=== PATIENT | female | born 1945 | race Caucasian/White ===

== ENCOUNTER 2021-04-08 01:27 | Emergency (ER) | payer OTHER ==
[2021-04-08 02:12] LABS: Protime INR 1.01
[2021-04-08] MEDS ORDERED: ATROPINE SULF 1 MG/10 ML SYR IV ONE (02:19)
[2021-04-08] MEDS ORDERED: NA CHLORIDE 0.9% 500 ML ONE ×2 (02:20→02:51)
[2021-04-08 02:21] LABS: Absolute Lymphocytes (CBC) 1.8 K/uL (0.7-4.9); Basophils % 0.8 % (0-1.3); Hematocrit 41.5 % (36.0-45.0); Lymphocytes % 27.7 % (15.3-44.8); MPV 8.1 fL (7.6-11.3); RBC Red Blood Cell Count 4.37 M/uL (3.86-4.86)
[2021-04-08] MEDS ORDERED: ONDANSETRON 4 MG/2 ML VIAL ONE (02:26)
[2021-04-08] MEDS ORDERED: MORPHINE 2 MG/ML SYR ONE (02:26)
[2021-04-08 02:30] LABS: BUN Blood Urea Nitrogen 20 mg/dL (7-18); Bicarbonate 29 mmol/L (21-32); Glucose Level 98 mg/dL (74-106); Magnesium 2.6 mg/dL (1.8-2.4); NT PRO-BNP 153 pg/mL (<450); Potassium 3.6 mmol/L (3.5-5.1); Sodium Level 141 mmol/L (136-145); Troponin (Emerg Dept Use Only) < 0.02 ng/mL (0.0-0.045)
--- NOTE | 2021-04-08 03:17 | EDPHYS ---
Physician Documentation [facility] Name: Tata Lainez Age: 76 yrs Sex: Female : 1945 Arrival Date: 04/08/2021 Time: 01:33 Bed 14 Private MD: ED Physician Lenny Kline HPI: 04/08 01:52 This 76 yrs old Female presents to ER via Unassigned with complaints of rn Syncope. 01:52 The patient has experienced syncope. Onset: The symptoms/episode began/occurred just rn prior to arrival. Duration: The patient has had multiple episodes. Associated injury: The patient did not suffer any apparent associated injury. Associated signs and symptoms: Pertinent positives: dizziness, lightheadedness, Pertinent negatives: abdominal pain, chest pain, seizure, shortness of breath. Current symptoms: Lightheaded. The patient has not experienced similar symptoms in the past. Patient reports that began 2 hours ago feeling lightheaded and dizzy. Denies any chest pain. No history of cardiac arrhythmia. Noticed heart pounding but denies any palpitations. Currently feels lightheaded. No recent medication changes. Sister gave a dose of nitroglycerin sublingual when became symptomatic.. Historical: - Allergies: 02:04 No Known Allergies; em - PMHx: 02:04 CAD; High Cholesterol; constipation; Hypertension; em - Immunization history:: Adult Immunizations up to date. - Social history:: Smoking status: Patient denies any tobacco usage or history of. - Family history:: not pertinent. - Hospitalizations: : No recent hospitalization is reported. - History obtained from: sister. ROS: 01:52 Constitutional: Negative for fever, chills, and weight loss, Eyes: Negative for injury, rn pain, redness, and discharge, Neck: Negative for injury, pain, and swelling, Cardiovascular: Negative for chest pain, palpitations, and edema, Respiratory: Negative for shortness of breath, cough, wheezing, and pleuritic chest pain, Abdomen/GI: Negative for abdominal pain, nausea, vomiting, diarrhea, and constipation, Back: Negative for injury and pain, MS/Extremity: Negative for injury and deformity, Skin: Negative for injury, rash, and discoloration, Neuro: Negative for headache, numbness, tingling, and seizure. 01:52 All other systems are negative. Exam: 01:52 Constitutional: This is a well developed, well nourished patient who is awake, alert, rn and in no acute distress. Head/Face: Normocephalic, atraumatic. Eyes: Periorbital areas with no swelling, redness, or edema. Cardiovascular: Bradycardic, regular. No pulse deficits Respiratory: No increased work of breathing, no retractions or nasal flaring. Abdomen/GI: Soft, non-tender, no masses Skin: Warm, dry, no cyanosis MS/ Extremity: Pulses equal, no cyanosis. Neurovascular intact. Full, normal range of motion. Equal circumference. Neuro: Awake and alert, GCS 15, oriented to person, place, time, and situation. Vital Signs: 01:40 BP 156 / 85; Pulse 33; Resp 18; Pulse Ox 99% on R/A; Weight 50.8 kg; Height 5 ft. 5 in. em (165.10 cm); Pain 0/10; 01:50 BP 165 / 68; Pulse 40; Resp 18; Pulse Ox 97% on R/A; Pain 0/10; wg 02:00 BP 146 / 55; Pulse 40; Resp 18; Pulse Ox 98% on 4 lpm NC; Pain 0/10; wg 02:15 BP 165 / 68; Pulse 34; Resp 18; Pulse Ox 98% on 4 lpm NC; Pain 0/10; wg 02:30 BP 158 / 68; Pulse 34; Resp 18; Pulse Ox 98% 4 lpm ; Pain 0/10; wg 02:32 Temp 97.9(O); sj1 02:46 BP 146 / 60; Pulse 34; Resp 18; Pulse Ox 100% on 4 lpm NC; Pain 0/10; wg 03:00 BP 144 / 61; Pulse 33; Resp 18; Pulse Ox 100% on 4 lpm NC; Pain 0/10; wg 03:15 BP 146 / 58; Pulse 33; Resp 18; Pulse Ox 100% on 4 lpm NC; Pain 0/10; wg 03:46 BP 123 / 56; Pulse 34; Resp 18; Pulse Ox 100% on NC; Pain 0/10; wg 04:00 BP 118 / 57; Pulse 33; Resp 18; Pulse Ox 100% on 4 lpm NC; Pain 0/10; wg 04:15 BP 112 / 57; Pulse 32; Resp 18; Pulse Ox 100% on 4 lpm NC; Pain 0/10; wg 01:40 Body Mass Index 18.64 (50.80 kg, 165.10 cm) em [place] Coma Score: 01:50 Eye Response: spontaneous(4). Verbal Response: oriented(5). Motor Response: obeys wg commands(6). Total: 15. MDM: 01:34 Patient medically screened. rn 02:04 ED course: Patient with complete heart block on ECG. Atropine did not think. Giving rn morphine and and going to pace with external pacers. Initiated transfer to [facility] since unable to place pacemaker here at this facility.. 03:13 ED course: [facility] just notified us that there are no ICU beds available. Initiating learning coach to [facility]. Patient still otherwise grossly asymptomatic at this time. Denies any dizziness/lightheadedness/chest pain or shortness of breath. Did not tolerate pacing too well even with pain medication, have pacer off at this time with constant reevaluation.. 03:13 Differential Diagnosis: cardiac arrhythmia, idiopathic syncope, vasovagal episode, international project engineer block, complete heart block. Data reviewed: vital signs, nurses notes, lab test result(s), EKG, and as a result, I will admit patient. Data interpreted: monitoring tech: rate is 33 beats/min, rhythm is Complete heart block, with 3rd degree heart block, Interpretation: Third-degree heart block, Pulse oximetry: on room air is 100 %. Interpretation: normal. Counseling: I had a detailed discussion with the patient and/or guardian regarding: the historical points, exam findings, and any diagnostic results supporting the discharge/admit diagnosis, lab results, the need to transfer to another facility, for higher level of care, [facility] does not immediately have the required specialist. Response to treatment: the patient's symptoms have mildly improved after treatment, and as a result, I will admit patient. 03:31 ED course: Dr. Danielle at [facility] cardiology accepts patient without rn consultation.. 04:18 ED course: Spoke with EMS, they do not believe she needs to be paced fo program manager transportation despite my request and recommendation for pacing. They state she appears hemodynamically stable and will only pace if becomes unstable. . 04/08 01:51 Order name: Basic Metabolic Panel rn 04/08 01:51 Order name: CBC with Diff; Complete Time: 02:52 rn 04/08 01:51 Order name: Magnesium; Complete Time: 02:52 rn 04/08 01:51 Order name: NT PRO-BNP; Complete Time: 02:52 rn 04/08 01:51 Order name: PT-INR; Complete Time: 02:52 rn 04/08 01:51 Order name: Troponin (emerg Dept Use Only); Complete Time: 02:52 rn 04/08 01:51 Order name: XRAY Chest (1 view) rn 04/08 01:52 Order name: Basic Metabolic Panel; Complete Time: 02:52 EDMS 04/08 02:14 Order name: SARS-COV-2 RT PCR; Complete Time: 03:24 EDMS 04/08 01:51 Order name: EKG; Complete Time: 01:52 rn 04/08 01:51 Order name: Cardiac monitoring; Complete Time: 02:01 rn 04/08 01:51 Order name: EKG - Nurse/Tech; Complete Time: 02:01 rn 04/08 01:51 Order name: IV Saline Lock; Complete Time: 02:01 rn 04/08 01:51 Order name: Labs collected and sent; Complete Time: 02:01 rn 04/08 01:51 Order name: O2 Per Protocol; Complete Time: 02: 04/08 01:51 Order name: O2 Sat Monitoring; Complete Time: 02:01 rn Administered Medications: 01:56 Drug: Atropine 0.5 mg Route: IVP; Site: right antecubital; em 02:12 Follow up: Response: No adverse reaction; No change in condition em 01:56 Drug: NS 0.9% 500 ml Route: IV; Rate: bolus; Site: right antecubital; em 03:48 Follow up: IV Status: Completed infusion; IV Intake: 500ml wg 02:00 Drug: Zofran (Ondansetron) 4 mg Route: IVP; Infused Over: 2 mins; Site: right wg antecubital; 02:48 Follow up: Response: No adverse reaction 02:00 Drug: morphine 2 mg Route: IVP; Infused Over: 2 mins; Site: right antecubital; wg 02:48 Follow up: Response: No adverse reaction 02:06 Drug: morphine 2 mg Route: IVP; Infused Over: 2 mins; Site: right antecubital; wg 02:47 Follow up: Response: No adverse reaction wg 03:10 Drug: Ativan (LORazepam) 0.5 mg Route: IVP; Infused Over: 2 mins; Site: right wg antecubital; 03:47 Follow up: Response: No adverse reaction 03:30 Drug: Ativan (LORazepam) 0.5 mg Route: IVP; Infused Over: 2 mins; Site: right wg antecubital; 03:48 Follow up: Response: Anxiety decreased Disposition Summary: 04/08/21 03:16 Transfer Ordered Transfer Location: [facility] rn Reason: Higher level of care rn Condition: Fair rn Problem: new rn Symptoms: are unchanged rn Accepting Physician: Dr. 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 Total rn time: 80 minutes Signatures: Dispatcher [employer] Evaristo Gore RN Lenny Gilbert MD MD rn [place], Phu, NICHOLE arenas Corrections: (The following items were deleted from the chart) 02:14 02:11 CORONAVIRUS+MR.LAB.BRZ ordered. BRANDY NAVA 03:31 03:16 Dr. saldaña rn 04:27 03:31 Dr. Danielle rn wg
--- NOTE | 2021-04-08 03:17 | ER ---
Nurse's Notes [facility] Name: Tata Lainez Age: 76 yrs Sex: Female : 1945 Arrival Date: 04/08/2021 Time: 01:33 Bed 14 Private MD: Diagnosis: Other specified heart block-Third degree heart block;Syncope Near Presentation: 04/08 01:40 Chief complaint: Patient states: palpitations, felt like passing out 3 times, now feels em heart is beating fast, Dr. Kline at bedside. 01:40 Method Of Arrival: Wheelchair em 01:40 Coronavirus screen: Vaccine status: Patient reports receiving the 2nd dose of the covid em vaccine. Ebola Screen: Patient negative for fever greater than or equal to 101.5 degrees Fahrenheit, and additional compatible Ebola Virus Disease symptoms Patient denies exposure to infectious person. Patient denies travel to an Ebola-affected area in the 21 days before illness onset. No symptoms or risks identified at this time. Initial Sepsis Screen: Does the patient meet any 2 criteria? No. Patient's initial sepsis screen is negative. Does the patient have a suspected source of infection? No. Patient's initial sepsis screen is negative. Risk Assessment: Do you want to hurt yourself or someone else? Patient reports no desire to harm self or others. Onset of symptoms was April 08, 2021. 01:40 Acuity: LISA 1 em Triage Assessment: 01:40 General: Appears in no apparent distress. comfortable, Behavior is calm, cooperative. em Pain: Denies pain. Neuro: Level of Consciousness is awake, alert, obeys commands, Oriented to person, place, time, situation. Cardiovascular: Denies chest pain, Capillary refill < 3 seconds Patient's skin is warm and dry. Rhythm is sinus bradycardia. Respiratory: Airway is patent Respiratory effort is even, unlabored, Respiratory pattern is regular, symmetrical. Derm: Skin is intact, is healthy with good turgor, Skin is pink, warm \T\ dry. Musculoskeletal: Range of motion: intact in all extremities. Historical: - Allergies: 02:04 No Known Allergies; em - PMHx: 02:04 CAD; High Cholesterol; constipation; Hypertension; em - Immunization history:: Adult Immunizations up to date. - Social history:: Smoking status: Patient denies any tobacco usage or history of. - Family history:: not pertinent. - Hospitalizations: : No recent hospitalization is reported. - History obtained from: sister. Screenin:36 Abuse screen: Denies threats or abuse. Denies injuries from another. Nutritional wg screening: No deficits noted. Tuberculosis screening: No symptoms or risk factors identified. Fall Risk Assessment: 01:55 Reassessment:. Cardiovascular: Capillary refill < 3 seconds Patient's skin is warm and wg dry. Rhythm is 3rd Degree Block. Respiratory: No deficits noted. Airway is patent Trachea midline Respiratory effort is even, unlabored, Respiratory pattern is regular, Breath sounds are clear bilaterally. GI: No deficits noted. : No deficits noted. 02:34 Reassessment: Dr. Kline at bedside. Pt medicated for comfort prior to pacing. Pt wg visually uncomfortable during pacing. Pt perfusing well. Pacing stopped, pads left in place. HR in the 30's with BP's in the 150's. 02:43 Reassessment: No changes from previously documented assessment. Pt remains wilian in 3rd wg degree. Pacing pads in place but not on. Pt continues to deny SOB, CP and the feeling she may pass out. Pt's sister at bedside. Pt remains stable without pacing at this time. 02:58 Reassessment: Patient appears in no apparent distress at this time. No changes from wg previously documented assessment. Patient is alert, oriented x 3, equal unlabored respirations, skin warm/dry/pink. Pt remains comfortable with only mild dizziness on occasion. Pt does not feel like she is going to pass out. Pt denies SOB and any pain/discomfort anywhere. Pt perfusing well. Awaiting transfer. 03:05 Reassessment: Patient appears in no apparent distress at this time. No changes from wg previously documented assessment. Patient is alert, oriented x 3, equal unlabored respirations, skin warm/dry/pink. Pt verbalized anxiety about what she experience and how she is feeling. Pt remains well perfused in a 3rd degree block at a rate in the low 30's. 03:32 Reassessment: No changes from previously documented assessment. Patient is alert, wg oriented x 3, equal unlabored respirations, skin warm/dry/pink. Pt remains unchanged hemodynamically. Pt states she is still feeling anxious and the ativan did help. Pt's HR remains in the 30's. 04:23 Reassessment: No changes from previously documented assessment. Patient is alert, wg oriented x 3, equal unlabored respirations, skin warm/dry/pink. Pt reported good relief following the ativan. 04:23 Reassessment: Report given to [facility]. Pt placed on their Pacer pads due to wg compatibility. Pt remains unpaced and perfusing well. 04:26 Reassessment: Report called to NICHOLE Ellison at [place] [facility]. Vital Signs: 01:40 BP 156 / 85; Pulse 33; Resp 18; Pulse Ox 99% on R/A; Weight 50.8 kg; Height 5 ft. 5 in. em (165.10 cm); Pain 0/10; 01:50 BP 165 / 68; Pulse 40; Resp 18; Pulse Ox 97% on R/A; Pain 0/10; wg 02:00 BP 146 / 55; Pulse 40; Resp 18; Pulse Ox 98% on 4 lpm NC; Pain 0/10; wg 02:15 BP 165 / 68; Pulse 34; Resp 18; Pulse Ox 98% on 4 lpm NC; Pain 0/10; wg 02:30 BP 158 / 68; Pulse 34; Resp 18; Pulse Ox 98% 4 lpm ; Pain 0/10; wg 02:32 Temp 97.9(O); sj1 02:46 BP 146 / 60; Pulse 34; Resp 18; Pulse Ox 100% on 4 lpm NC; Pain 0/10; wg 03:00 BP 144 / 61; Pulse 33; Resp 18; Pulse Ox 100% on 4 lpm NC; Pain 0/10; wg 03:15 BP 146 / 58; Pulse 33; Resp 18; Pulse Ox 100% on 4 lpm NC; Pain 0/10; wg 03:46 BP 123 / 56; Pulse 34; Resp 18; Pulse Ox 100% on NC; Pain 0/10; wg 04:00 BP 118 / 57; Pulse 33; Resp 18; Pulse Ox 100% on 4 lpm NC; Pain 0/10; wg 04:15 BP 112 / 57; Pulse 32; Resp 18; Pulse Ox 100% on 4 lpm NC; Pain 0/10; wg 01:40 Body Mass Index 18.64 (50.80 kg, 165.10 cm) em Vitals: 02:36 Cardiac Rhythm Assessment Regular Other 3rd degree block. wg 03:00 Cardiac Rhythm Assessment Regular Other 3rd degree block. wg [place] Coma Score: 01:50 Eye Response: spontaneous(4). Verbal Response: oriented(5). Motor Response: obeys wg commands(6). Total: 15. ED Course: 01:33 Patient arrived in ED. wm 01:34 Lenny Kline MD is Attending Physician. rn 01:45 Phu Chavis RN is Primary Nurse. wg 02:04 Triage completed. em 02:04 Arm band placed on. em 02:05 Initiated transfer at [facility] with Kirstin Lobato. Stated she would work on the case tt3 but believes they are on ICU saturation but would double check and call back. 02:30 XRAY Chest (1 view) In Process Unspecified. EDMS 02:36 Patient has correct armband on for positive identification. Placed in gown. Bed in low wg position. Call light in reach. Side rails up X2. Adult w/ patient. groundwater monitoring technician on. Pulse ox on. NIBP on. 02:36 [place] cath inserted, using sterile technique, 16 Fr., by ak, balloon inflated, to wg gravity drainage. Inserted saline lock: 18 gauge in right antecubital area, using aseptic technique. Blood collected. Oxygen administration via nasal cannula \T\ 4L/min. Patient placed on transcutaneous pacer. Peripheral pulses felt with pacing. Note: Attempted by Dr. Kline but pt did not tolerate well. Pt perfusing well at this time so holding off for now. . 02:48 Basic Metabolic Panel Sent. wg 03:10 Called to update Kirstin on the covid result. Stated she was in the process of calling tt3 back. No campus has a bed available. 03:12 Initiated transfer at [facility] with Viola Reza. Stated she would do a tt3 capacity check and call back. 03:24 Viola Reza called back with their physician to speak with Dr. Kline regarding the tt3 transfer request. 03:26 Viola Reza gave admin approval. The accepting physician is Dr. Danielle. The pt is tt3 going to [facility]. Nurse to call report to . Face sheet and MOT to be faxed to per Viola's request. 04:25 Patient transferred, IV remains in place. wg Administered Medications: 01:56 Drug: Atropine 0.5 mg Route: IVP; Site: right antecubital; em 02:12 Follow up: Response: No adverse reaction; No change in condition em 01:56 Drug: NS 0.9% 500 ml Route: IV; Rate: bolus; Site: right antecubital; em 03:48 Follow up: IV Status: Completed infusion; IV Intake: 500ml wg 02:00 Drug: Zofran (Ondansetron) 4 mg Route: IVP; Infused Over: 2 mins; Site: right wg antecubital; 02:48 Follow up: Response: No adverse reaction wg 02:00 Drug: morphine 2 mg Route: IVP; Infused Over: 2 mins; Site: right antecubital; wg 02:48 Follow up: Response: No adverse reaction wg 02:06 Drug: morphine 2 mg Route: IVP; Infused Over: 2 mins; Site: right antecubital; wg 02:47 Follow up: Response: No adverse reaction wg 03:10 Drug: Ativan (LORazepam) 0.5 mg Route: IVP; Infused Over: 2 mins; Site: right wg antecubital; 03:47 Follow up: Response: No adverse reaction wg 03:30 Drug: Ativan (LORazepam) 0.5 mg Route: IVP; Infused Over: 2 mins; Site: right antecubital; 03:48 Follow up: Response: Anxiety decreased wg Intake: 03:48 IV: 500ml; Total: 500ml. wg Outcome: 03:16 ER care complete, transfer ordered by . rn 04:25 Transferred by ground EMS to [facility], Transfer form completed. X-rays sent wg w/ patient. 04:27 Patient left the ED. wg Signatures: Dispatcher [employer] EDMS Evaristo Parmar RN RN em Lenny Kline MD MD rn [place], [place] tt3 Catrachita Torres Phu Chavis RN Sonya Danielle RN RN sj1 Corrections: (The following items were deleted from the chart) 02:29 01:40 Cardiovascular: Denies chest pain, Capillary refill < 3 seconds Patient's skin is em warm and dry. Rhythm is junctional rhythm em 03:02 02:52 Phu Chavis RN is Primary Nurse. wg wg 03:47 03:43 Reassessment: No changes from previously documented assessment. Patient is alert, wg oriented x 3, equal unlabored respirations, skin warm/dry/pink. Pt remains unchanged hemodynamically. Pt states she is still feeling anxious and the ativan did help. Pt's HR remains in the 30's. wg
[2021-04-08] MEDS ORDERED: LORazepam 2 MG/ML VIAL ONE ×2 (03:42→03:56)
[2021-04-08 04:40] VITALS: TEMP 97.9
[2021-04-08 04:41] VITALS: O2SAT 100
[2021-04-08 04:50] VITALS: BP 112/57
--- NOTE | 2021-04-08 08:27 | RAD REPORT ---
EXAM DESCRIPTION: [place] Single View04/08/2021 2:30 am CLINICAL HISTORY: Syncope COMPARISON: 2016 FINDINGS: Artifact overlies the chest. The The lungs appear clear of acute infiltrate. The heart is mildly enlarged IMPRESSION: No acute abnormalities displayed
--- NOTE | 2021-04-09 11:45 | EKG ---
Test Date: 2021-04-08 Test Time: 01:45:40 Machine Sorter: MEASUREMENT RESULTS: Intervals: Rate: 33 SD: QRSD: 94 QT: 494 QTc: 365 [place]: P: 82 SD: QRS: 51 T: 103 INTERPRETIVE STATEMENTS: Sinus rhythm with complete heart block and Junctional bradycardia Nonspecific ST and T wave abnormality Abnormal ECG Compared to ECG 08/03/2016 07:36:59 AV block, complete (third-degree) now present ST (T wave) deviation now present Sinus bradycardia no longer present T-wave abnormality no longer present Electronically Signed On 04-09-21 11:44:30 CDT by Kalia Dent
== END 2021-04-08 04:27 | disposition short-term general hospital (02) ==
LOC: ER 01:27
DX: I44.2 Atrioventricular block, complete (principal); I10 Essential (primary) hypertension; I25.10 Atherosclerotic heart disease of native coronary artery without angina pectoris; Z20.822 Contact with and (suspected) exposure to COVID-19
CPT/HCPCS: 96361; 93005; 85025; 80048; 36415; 83735; 85610; 84484; 83880; 71045; 51702; 96375; 96374; 99291; 99292; U0003; J2270; J7040 ×2; J2405

== ENCOUNTER 2022-11-16 15:32 | Emergency (ER) | payer OTHER ==
--- OUTSIDE RECORDS SUMMARY | 2022-11-16 16:14 | XMS REPORT | Continuity of Care Document ---
:1945 Author Organization [facility] t Address [address] [place] [address] Care Team Providers Name Role Phone MICKY XIONG Attending Clinician Unavailable BOZENA ARCHER Attending Clinician Unavailable Gregorio Stein MD Attending Clinician [phone] KIM Attending Clinician Unavailable Catherine Castillo MA Attending Clinician Unavailable Myrna Ochoa Attending Clinician Unavailable Lucina Danielle Attending Clinician LUCINA DANIELLE Attending Clinician Unavailable Katlyn Tena Attending Clinician KATLYN COTE Attending Clinician Unavailable Pob, [facility] Attending Clinician Unavailable Doctor Unassigned, [place] Attending Clinician Unavailable KIM Admitting Clinician Unavailable Lucina Danielle Admitting Clinician LUCINA DANIELLE Admitting Clinician Unavailable Payers Payer Name Policy Type Policy Number Effective Date Expiration Date Margoth jesus MEDICARE PART A [id number] 2009 2024 AND B 00:00:00 00:00:00 Problems Condition Condition Condition Status Onset Resolution Last Treating Co mments Source Name Details Category Date Date Treatment Clinician Date COMPLETE COMPLETE Diagnosis Active 2020-062021-04-16 [facility] 0-15 21:40:00 l BLOCK BLOCK 00:00: David Active 04/08/2021 [facility] No known No known Disease Unive rs active active ity of problems problems [facility] Allergies, Adverse Reactions, Alerts Allergy Allergy Status Severity Reaction(s) Onset Inactive Treating Comm ents Source Name Type Date Date Clinician NO KNOWN Drug Active Univers ALLERGNINA Class ity of S [facility] Social History Social Habit Start Date Stop Date Quantity Comments Source History [facility] Health Alcohol Std Drinks History Count includes the [facility] Alcohol Binge History Count includes the [facility] Alcohol Comment Exposure to 2022-03-11 2022-03-21 Not sure [facility] SARS-CoV-2 (event) 00:00:00 13:56:00 Tobacco use and 2022-03-21 2022-03-21 Smokeless tobacco [place] [facility] exposure 00:00:00 00:00:00 non-user Alcohol intake 2022-03-21 2022-03-21 Lifetime [place] [facility] 00:00:00 00:00:00 non-drinker (finding) History SDKS 2021-09-06 2021-09-06 1 [place] [facility] Alcohol Frequency 00:00:00 00:00:00 Social History 2021-04-08 2021-04-08 [facility] 12:27:16 12:27:16 Sex [birth year] [facility] 00:00:00 00:00:00 Smoking Status Start Date Stop Date Source Tobacco smoking consumption unknown [facility] Never smoked tobacco [facility] Medications Ordered Filled Start Stop Current Ordering Indication Dosage Frequency Signature Comments Components Source Medication Medication Date Date Medication? Clinician (SIG) Name Name Magnesium Yes Q.5D Take by [facility] 250 MG 9-27 mouth 2 Health tablet 14:16: (two) 55 times a day. thiamine Yes 100mg QD Take 100 UT (Vitamin 9-27 mg by Health B-1) 100 MG 14:16: mouth 1 tablet 55 (one) time each day. ascorbic Yes 500mg QD Take 500 UT acid 9-27 mg by Health (Vitamin C) 14:16: mouth 1 500 MG 55 (one) time tablet each day. VITAMIN D Yes QD Take by UT PO 9-27 mouth 1 Health 14:16: (one) time 55 each day. Fexofenadin Yes QD Take by UT e HCl 9-27 mouth 1 Health (WILBUR 14:16: (one) time PO) 55 each day. ibandronate Yes 150mg Q30D Take 150 U T (Boniva) 9-27 mg by [facility] 150 MG 14:16: mouth tablet 55 every 30 (thirty) days. Take in morning with full glass of water on an empty stomach. No food, drink, meds, or lying down for 60 minutes after. Polyethylen 2021-0 Yes Take by UT e Glycol 9 mouth. Health 3350 14:16: (MIRALAX 55 PO) amLODIPine 0 Yes amlodipine U T (Norvasc) 5 03-21 5 mg Health MG tablet 14:16: tablet 55 amoxicillin 0 Yes amoxicilli UT (Amoxil) 03-21 n 250 mg Health 250 MG 14:16: capsule capsule 55 atorvastati Yes atorvastat UT n (Lipitor) 03-21 in 80 mg Heal th 80 MG 14:16: tablet tablet 55 isosorbide Yes isosorbide U T mononitrate 03-21 mononitrat He alth ER (Imdur) 14:16: e ER 30 mg 30 MG 24 hr 55 tablet,ext tablet ended release 24 hr cetirizine 0 Yes 10mg QD Take 10 mg U T (ZyrTEC) 10 03-21 by mouth 1 He alth MG tablet 14:16: (one) time 55 each day. BABY 2021-0 Yes 81mg QD Take 81 mg UT ASPIRIN PO 27 by mouth 1 Hea lth 14:16: (one) time 55 each day. Polyethylen 2-0 Yes Q.5D Take by UT e Glycol 03-21 mouth 2 Health 3350 14:16: (two) (MIRALAX 55 times a PO) day. calcium 2-0 Yes 600mg Take 600 UT carbonate 9-27 mg by Health (Os-Tim) 14:16: mouth 2 600 MG 55 (two) tablet times a day with meals. BABY 2-0 Yes 81mg QD Take 81 mg UT ASPIRIN PO 3-15 by mouth 1 Hea lth 14:23: (one) time 18 each day. Polyethylen 2022-0 Yes Q.5D Take by UT e Glycol 3-15 mouth 2 Health 3350 14:23: (two) (MIRALAX 18 times a PO) day. calcium 2022-0 Yes 600mg Take 600 UT carbonate 3-15 mg by Health (Os-Tim) 14:23: mouth 2 600 MG 18 (two) tablet times a day with meals. Magnesium 2022-0 Yes Q.5D Take by UT 250 MG 3-15 mouth 2 Health tablet 14:23: (two) 18 times a day. thiamine 2022-0 Yes 100mg QD Take 100 UT (Vitamin 3-15 mg by Health B-1) 100 MG 14:23: mouth 1 tablet 18 (one) time each day. ascorbic 2022-0 Yes 500mg QD Take 500 UT acid 3-15 mg by [facility] (Vitamin C) 14:23: mouth 1 500 MG 18 (one) time tablet each day. VITAMIN D 2022-0 Yes QD Take by UT PO 3-15 mouth 1 Health 14:23: (one) time 18 each day. Fexofenadin 2021-0 Yes QD Take by UT e HCl 3-15 mouth 1 [facility] (WILBUR 14:23: (one) time PO) 18 each day. ibandronate 2021-0 Yes 150mg Q30D Take 150 U T (Boniva) 3-15 mg by [facility] 150 MG 14:23: mouth tablet 18 every 30 (thirty) days. Take in morning with full glass of water on an empty stomach. No food, drink, meds, or lying down for 60 minutes after. Polyethylen 2021-0 Yes Take by UT e Glycol 3-15 mouth. Health 3350 14:23: (MIRALAX 18 PO) traZODone 2021-0 Yes 25mg Take 25 mg UT (Desyrel) 1-03 by mouth Health 50 MG 00:00: every tablet 00 night. BABY 2020-06 Yes Take by UT ASPIRIN PO 2-03 mouth. Health 13:48: 23 Polyethylen 2020- Yes Take by UT e Glycol 2-03 mouth. Health 3350 13:48: (MIRALAX 23 PO) calcium 2020- Yes 600mg Take 600 UT carbonate 2-03 mg by [facility] (Calcium 13:48: mouth 2 600) 600 MG 23 (two) tablet times a day with meals. Magnesium 2020-06 Yes Take by UT 250 MG 2-03 mouth. Health tablet 13:48: 23 thiamine 2020- Yes 100mg QD Take 100 UT (Vitamin 2-03 mg by [facility] B-1) 100 MG 13:48: mouth 1 tablet 23 (one) time each day. ascorbic 2020-06 Yes 500mg QD Take 500 UT acid 2-03 mg by [facility] (Vitamin C) 13:48: mouth 1 500 MG 23 (one) time tablet each day. VITAMIN D 2020-06 Yes Take by UT PO 2-03 mouth. Health 13:48: 23 Fexofenadin 2020-06 Yes Take by UT e HCl 2-03 mouth. Health ([place]IL[place] 13:48: PO) 23 ibandronate 2020-06 Yes 150mg Q30D Take 150 U T (Boniva) 2-03 mg by [facility] 150 MG 13:48: mouth tablet 23 every 30 (thirty) days. Take in morning with full glass of water on an empty stomach. No food, drink, meds, or lying down for 60 minutes after. Polyethylen 2020-06 Yes Take by UT e Glycol 2-03 mouth. Health 3350 13:48: (MIRALAX 23 PO) fluticasone 2020-06 Yes UT (Flonase) 09 [facility] 50 MCG/ACT 00:00: nasal spray 00 Fexofenadin 2020-06 Yes Take by UT e HCl 1-03 mouth. Health ([place]IL[place] 10:13: PO) 11 ibandronate 2020-06 Yes 150mg Q30D Take 150 U T (Boniva) 1-03 mg by [facility] 150 MG 10:13: mouth tablet 11 every 30 (thirty) days. Take in morning with full glass of water on an empty stomach. No food, drink, meds, or lying down for 60 minutes after. Polyethylen 2020-06 Yes Take by UT e Glycol 1-03 mouth. Health 3350 10:13: (MIRALAX 11 PO) BABY 2020-06 Yes Take by UT ASPIRIN PO 1-03 mouth. Health 10:13: 11 Polyethylen 2020-06 Yes Take by UT e Glycol 1-03 mouth. Health 3350 10:13: (MIRALAX 11 PO) calcium 2020-06 Yes 600mg Take 600 UT carbonate 1-03 mg by [facility] (Calcium 10:13: mouth 2 600) 600 MG 11 (two) tablet times a day with meals. Magnesium 2020-06 Yes Take by UT 250 MG 1-03 mouth. Health tablet 10:13: 11 thiamine 2020-06 Yes 100mg QD Take 100 UT (Vitamin 1-03 mg by Health B-1) 100 MG 10:13: mouth 1 tablet 11 (one) time each day. ascorbic 2020-06 Yes 500mg QD Take 500 UT acid 1-03 mg by Health (Vitamin C) 10:13: mouth 1 500 MG 11 (one) time tablet each day. VITAMIN D 2020-06 Yes Take by UT PO 1-03 mouth. Health 10:13: 11 heparin 2020-06 No Notes: [facility] 0-18 porcine l 03:38: heparin David 00 minocycline 2020-06 Yes 100 mg, Mem oria 100 mg oral 0-16 PO, BID, X l capsule 15:39: 6 day, # Mynor n 00 12 ea, 0 Refill(s), Pharmacy: [facility] 482, 165.1, cm, 04/08/21 6:09:00 CDT, Height, 55.4, kg, 04/08/21 6:09:00 CDT, Weight potassium 2020-06 No Notes: Memori a phosphate-s 0-16 (Same as: l odium 15:38: Phos-NaK) [place] phosphate 00 Each 1.5 250 mg-280 gm pkt has mg-160 mg 250mg oral powder phosphorou for s. Mix reconstitut w/2.5oz ion water and stir. Magnesium 2020-06 No Notes: Memori a Sulfate 0-16 WASTE: F/P l 15:38: - Sink; E - Municipal Trash Bin Magnesium 2020-06 No Notes: Memori a Oxide 0-16 (Same as: l 15:38: Mag-Ox [place] 00 400) Magnesium oxide [id number] g elemental magnesium Dose=____m g magnesium oxide (___mg elemental magnesium) Calcium 2020-06 No Notes: [facility] Gluconate 0-16 Contains: l 15:38: calcium [place] 00 gluconate 20mg/mL NaCl 0.67% 50mL WASTE: F/P - Sink; E - Municipal Trash Bin calcium 2020-06 No Notes: [facility] carbonate 0-16 (Same As: l 500 mg (200 15:38: Tums) [place] nn mg 00 Calcium elemental Carbonate calcium) 500 mg = oral tablet 200 mg elemental calcium Dose = mg calcium carbonate ( mg elemental calcium) Potassium 2020-06 No Notes: Memori a Chloride 0-16 (Same as: l 15:38: KCL) 10 00 mEq/100ml product recommende d for peripheral line administra tion. Infuse no faster than 10 mEq/hr if given peripheral ly. sodium 2020-06 No Notes: [facility] phosphate 0-16 Infuse l 15:38: over 4 hour. Do not infuse phosphorou s concurrent ly in the same line as TPN or IVF that contains calcium. For double lumen central lines, phosphorou s may be infused in a separate lumen from TPN. potassium 2020-06 No Notes: Memori a phosphate 0-16 (Same as: l 15:38: K Phosphate) Infuse over 4 hour. Do not infuse phosphorou s concurrent ly in the same line as TPN or IVF that contains calcium. For double lumen central lines, phosphorou s may be infused in a separate lumen from TPN. sennosides, 2020-06 No Notes: Oral [place] LONG TERM 0-16 (Same as: l 02:00: Senokot) minocycline 2020-06 Yes UT 100 MG 0-16 Health capsule 00:00: 00 Compazine 2020-06 No Notes: Memori a 0-15 (Same as: l 23:46: Compazine) Minocycline 2020-06 No Notes: Oral [place] 100 MG Oral 0-15 (Same l Capsule 22:00: as:Minocin ) No milk/antac ids/iron. acetaminoph 2020-06 No Notes: Do M emoria en-codeine 0-15 not exceed l #3 19:54: 4gm/day of acetaminop hen. (Same as: Tylenol with Codeine # 3) POLYETHYLEN 2020-06 No Notes: Oral [place] E GLYCOL 0-15 Dissolve l 3350 14:00: in 8 oz of water or juice. (Same as: Miralax) Dextrose 2020-06 No 12.5 gm, Memor ia 50% Syringe 0-15 25 mL, l (D50W) 10:43: Route: IVP, Drug Form: INJ, kg, PRN, PRN Blood Glucose Results, Start date: 04/08/21 5:43:00 CDT, Duration: 30 day, Stop date: 05/08/21 4:42:00 [employer], 0 Glucagon 2020-06 No 1 mg, [facility]oria 0-15 Route: IM, l 10:43: Drug form: PDR/INJ, PRN, kg, PRN Blood Glucose Results, Start date: 04/08/21 5:43:00 CDT, Duration: 30 day, Stop date: 05/08/21 4:42:00 [employer], 0 Melatonin 2020-06 No Notes: Memori a 0-15 (Same as: l 10:43: Melatonin) nitroglycer 2019-06 Yes nitroglyce Univers in 0.4 mg 2-23 rin 0.4 mg ity of sublingual 17:03: sublingual [place] tablet 26 tablet [facility] nitroglycer 2019-06 Yes nitroglyce Univers in 0.4 mg 2-23 rin 0.4 mg ity of sublingual 17:03: sublingual [place] tablet 26 tablet [facility] nitroglycer 2019-06 Yes nitroglyce Univers in 0.4 mg 2-23 rin 0.4 mg ity of sublingual 17:03: sublingual [place] tablet 26 tablet [facility] nitroglycer 2019-06 Yes nitroglyce Univers in 0.4 mg 2-23 rin 0.4 mg ity of sublingual 17:03: sublingual [place] tablet 26 tablet [facility] nitroglycer 2019-06 Yes nitroglyce Univers in 0.4 mg 2-23 rin 0.4 mg ity of sublingual 17:03: sublingual [place] tablet 26 tablet [facility] nitroglycer 2019-06 Yes nitroglyce Univers in 0.4 mg 2-23 rin 0.4 mg ity of sublingual 17:03: sublingual [place] tablet 26 tablet [facility] amLODIPine 2019-06 Yes amlodipine U nivers 5 mg tablet 2-23 5 mg ity of 17:03: tablet [address] amoxicillin 2019-06 Yes amoxicilli Univers 250 mg 2-23 n 250 mg ity of capsule 17:03: capsule [address] atorvastati 2019-06 Yes atorvastat Univers n 80 mg 2-23 in 80 mg ity of tablet 17:03: tablet [address] isosorbide 2019-06 Yes isosorbide U nivers mononitrate 2-23 mononitrat it y of 30 mg 24 hr 17:03: e ER 30 mg [place] tablet 25 tablet,ext Medical ended Branch release 24 hr amLODIPine 2019-06 Yes amlodipine U nivers 5 mg tablet 2-23 5 mg ity of 17:03: tablet [address] amoxicillin 2019-06 Yes amoxicilli Univers 250 mg 2-23 n 250 mg ity of capsule 17:03: capsule [address] atorvastati 2019-06 Yes atorvastat Univers n 80 mg 2-23 in 80 mg ity of tablet 17:03: tablet [address] isosorbide 2019-06 Yes isosorbide U nivers mononitrate 2-23 mononitrat it y of 30 mg 24 hr 17:03: e ER 30 mg [place] tablet 25 tablet,ext Medical ended Branch release 24 hr amLODIPine 2019-06 Yes amlodipine U nivers 5 mg tablet 2-23 5 mg ity of 17:03: tablet [address] amoxicillin 2019-06 Yes amoxicilli Univers 250 mg 2-23 n 250 mg ity of capsule 17:03: capsule [address] atorvastati 2019-06 Yes atorvastat Univers n 80 mg 2-23 in 80 mg ity of tablet 17:03: tablet [address] isosorbide 2019-06 Yes isosorbide U nivers mononitrate 2-23 mononitrat it y of 30 mg 24 hr 17:03: e ER 30 mg [place] tablet 25 tablet,ext Medical ended Branch release 24 hr amLODIPine 2019-06 Yes amlodipine U nivers 5 mg tablet 2-23 5 mg ity of 17:03: tablet [address] amoxicillin 2019-06 Yes amoxicilli Univers 250 mg 2-23 n 250 mg ity of capsule 17:03: capsule [address] atorvastati 2019-06 Yes atorvastat Univers n 80 mg 2-23 in 80 mg ity of tablet 17:03: tablet [address] isosorbide 2019-06 Yes isosorbide U nivers mononitrate 2-23 mononitrat it y of 30 mg 24 hr 17:03: e ER 30 mg [place] tablet 25 tablet,ext Medical ended Branch release 24 hr amLODIPine 2019-06 Yes amlodipine U nivers 5 mg tablet 2-23 5 mg ity of 17:03: tablet [address] amoxicillin 2019-06 Yes amoxicilli Univers 250 mg 2-23 n 250 mg ity of capsule 17:03: capsule [address] atorvastati 2019-06 Yes atorvastat Univers n 80 mg 2-23 in 80 mg ity of tablet 17:03: tablet [address] isosorbide 2019-06 Yes isosorbide U nivers mononitrate 2-23 mononitrat it y of 30 mg 24 hr 17:03: e ER 30 mg [place] tablet 25 tablet,ext Medical ended Branch release 24 hr amLODIPine 2019-06 Yes amlodipine U nivers 5 mg tablet 2-23 5 mg ity of 17:03: tablet [address] amoxicillin 2019-06 Yes amoxicilli Univers 250 mg 2-23 n 250 mg ity of capsule 17:03: capsule [address] atorvastati 2019-06 Yes atorvastat Univers n 80 mg 2-23 in 80 mg ity of tablet 17:03: tablet [address] isosorbide 2019-06 Yes isosorbide U nivers mononitrate 2-23 mononitrat it y of 30 mg 24 hr 17:03: e ER 30 mg [place] tablet 25 tablet,ext Medical ended Branch release 24 hr sulfamethox 2019-06 Yes 1{tbl} Take 1 UT azole-trime 2-21 tablet by a [facility] thoprim 00:00: mouth. (Bactrim 00 DS) 800-160 MG tablet sulfamethox 2019-06 Yes 1{tbl} Take 1 Un [place] azole-trime 2-21 tablet by ity of thoprim 00:00: mouth 2 [place] 800-160 mg 00 (two) Medical per tablet times Branch daily. sulfamethox 2019-06 Yes 1{tbl} Take 1 Un meera azole-trime 2-21 tablet by ity of thoprim 00:00: mouth 2 [place] 800-160 mg 00 (two) Medical per tablet times Branch daily. sulfamethox 2019-06 Yes 1{tbl} Take 1 Un meera azole-trime 2-21 tablet by ity of thoprim 00:00: mouth 2 [place] 800-160 mg 00 (two) Medical per tablet times Branch daily. sulfamethox 2020- Yes 1{tbl} Take 1 Un meera azole-trime 2-21 tablet by ity of thoprim 00:00: mouth 2 [place] 800-160 mg 00 (two) Medical per tablet times Branch daily. sulfamethox 2020- Yes 1{tbl} Take 1 Un meera azole-trime 2-21 tablet by ity of thoprim 00:00: mouth 2 [place] 800-160 mg 00 (two) Medical per tablet times Branch daily. sulfamethox 2019- Yes 1{tbl} Take 1 Un meera azole-trime 2-21 tablet by ity of thoprim 00:00: mouth 2 [place] 800-160 mg 00 (two) Medical per tablet times Branch daily. ibandronate 2019-06 Yes TAKE 1 Univ ers 150 mg 2-01 TABLET BY ity of tablet 00:00: MOUTH ONCE [place] 00 EVERY Medical MONTH Branch ibandronate 2019-06 Yes TAKE 1 Univ ers 150 mg 2-01 TABLET BY ity of tablet 00:00: MOUTH ONCE [place] EVERY Medical MONTH Branch ibandronate 2019-06 Yes TAKE 1 Univ ers 150 mg 2-01 TABLET BY ity of tablet 00:00: MOUTH ONCE [place] 00 EVERY Medical MONTH Branch ibandronate 2019-06 Yes TAKE 1 Univ ers 150 mg 2-01 TABLET BY ity of tablet 00:00: MOUTH ONCE [place] 00 EVERY Medical MONTH Branch ibandronate 2019- Yes TAKE 1 Univ ers 150 mg 2-01 TABLET BY ity of tablet 00:00: MOUTH ONCE [place] 00 EVERY Medical MONTH Branch ibandronate 2019-06 Yes TAKE 1 Univ ers 150 mg 2-01 TABLET BY ity of tablet 00:00: MOUTH ONCE [place] EVERY Medical MONTH Branch Vital Signs Vital Name Observation Time Observation Value Comments Source Systolic blood 2021-04-27 15:04:00 148 mm[Hg] [facility] pressure Diastolic blood 2021-04-27 15:04:00 76 mm[Hg] [facility] pressure Heart rate 2021-04-27 15:04:00 60 [facility] 2021-04-27 15:04:00 [facility]1 cm [facility] 2021-04-27 15:04:00 48[facility]988 [facility] BMI 2021-04-27 15:04:00 17.97 kg/m2 [facility] Systolic blood 2022-03-21 19:11:00 132 mm[Hg] [facility] pressure Diastolic blood 2022-03-21 19:11:00 76 mm[Hg] [facility] He [facility]th pressure Heart rate 2022-03-21 19:11:00 67 /min [facility] Body height 2022-03-21 19:11:00 165.1 cm [facility] Body weight 2022-03-21 19:11:00 53.524 kg [facility] BMI 2022-03-21 19:11:00 19.64 kg/m2 [facility] Systolic blood 2021-09-06 19:28:00 149 mm[Hg] [facility] pressure Diastolic blood 2021-09-06 19:28:00 80 mm[Hg] [facility] He [facility]th pressure Heart rate 2021-09-06 19:28:00 60 /min [facility] Body height 2021-09-06 19:28:00 165.1 cm [facility] Body weight 2021-09-06 19:28:00 52.164 kg [facility] BMI 2021-09-06 19:28:00 19.14 kg/m2 [facility] Systolic blood 2021-04-27 15:04:00 148 mm[Hg] [facility] pressure Diastolic blood 2021-04-27 15:04:00 76 mm[Hg] [facility] He alth pressure Heart rate 2021-04-27 15:04:00 60 /min [facility] Body height 2021-04-27 15:04:00 165.1 cm [facility] Body weight 2021-04-27 15:04:00 48.988 kg [facility] BMI 2021-04-27 15:04:00 17.97 kg/m2 [facility] Systolic blood 2020-07-21 20:41:00 125 mm[Hg] Univer sity of pressure [facility] Diastolic blood 2020-07-21 20:41:00 71 mm[Hg] Unive rsity of [facility] Heart rate 2020-07-21 20:41:00 60 /min [facility] Body temperature 2020-07-21 20:41:00 36.67 Sandra [facility] 2020-07-21 20:41:00 18 /min Univ ersity [facility] [place] [facility] Body height 2020-07-21 20:41:00 165.1 cm Universi ty of [facility] Body weight 2020-07-21 20:41:00 51.166 kg Universi ty of [facility] BMI 2020-07-21 20:41:00 18.77 kg/m2 Universi ty [facility] [place] [facility] Systolic blood 2020-06-16 17:00:00 118 mm[Hg] Univer sity of pressure [place] [facility] Diastolic blood 2020-06-16 17:00:00 67 mm[Hg] Unive rsity of pressure [facility] Heart rate 2020-06-16 17:00:00 49 /min Universi ty [facility] [place] [facility] Body temperature 2020-06-16 17:00:00 36.5 Sandra Univ [facility] Respiratory rate 2020-06-16 17:00:00 18 /min [facility] height 2020-06-16 17:00:00 165.1 cm [facility]i ty [facility] [place] [facility] [place] Body weight 2020-06-16 17:00:00 49.986 kg Universi ty [facility] [place] [facility] BMI 2020-06-16 17:00:00 18.34 kg/m2 Universi ty [facility] [place] [facility] Respitory Rate 2021-04-09 20:00:00 Memori al [place] Respitory Rate 2021-04-09 19:00:00 Memori al [place] Respitory Rate 2021-04-09 18:00:00 Memori al [place] Systolic (mm Hg) 2021-04-09 18:00:00 Oral rial [place] Diastolic (mm Hg) 2021-04-09 18:00:00 Mem orial [place] Systolic (mm Hg) 2021-04-09 17:00:00 Oral rial [place] Diastolic (mm Hg) 2021-04-09 17:00:00 Mem orial David Temperature Oral (F) 2021-04-09 17:00:00 97.5 F [facility] Systolic (mm Hg) 2021-04-09 16:00:00 Oral rial [place] Diastolic (mm Hg) 2021-04-09 16:00:00 Mem orial [place] Temperature Oral (F) 2021-04-09 13:00:00 96.6 F [facility] Height 2021-04-08 10:50:00 165.1 cm [facility] Weight 2021-04-08 10:50:00 [facility] BMI Calculated 2021-04-08 10:50:00 Mary Ellen Granger Procedures Procedure Date / Time Performed Performing Clinician Sour e ECG 12-LEAD 2021-09-06 19:24:00 Micky Xiong [facility] POCT URINALYSIS AUTO 2020-07-21 20:45:00 Katlyn Cote [facility] ASSIGNMENT OF BENEFITS 2020-06-22 16:46:49 Doctor Unassigned, No [facility] POCT URINALYSIS AUTO 2020-06-16 19:26:00 Katlyn Cote [facility] Encounters Start End Encounter Admission Attending Care Care Encounter Source Date/Time Date/Time Type Type Clinicians Facility Department ID 2022-10-25 Outpatient [facility] [id number] [place] 11:26:28 [id number] [facility] 2022-10-03 Outpatient [facility] [id number] [place] 08:21:35 [id number] [facility] 2022-04-28 Outpatient [facility] [id number] [place] 12:11:14 [id number] [facility] 2021-09-06 Outpatient TRINH, [facility] [id number] [place] 15:01:56 [facility] 2021-05-27 Outpatient TRINH, [facility] [id number] [place] 14:18:41 [facility] 2021-04-27 [facility] [id number] [place] 10:38:29 [facility] 2021-04-11 Outpatient TRINH, [facility] [id number] [place] 13:48:26 [facility] 2022-10-10 2022-10-10 Outpatient SUZI [facility] [id number] [place] 14:15:00 14:15:00 [facility] 2022-03-21 2022-03-21 Office Ed [facility] [id number] [place] 14:00:00 15:26:34 Visit Margenat, [address]NO[address] [facility] [id number] Health Gregorio [id number] 1 2022-01-04 2022-01-04 Outpatient LALITHA VAILKALEB RAMON 734 [place] 10:28:00 10:28:00 HN [id number] [facility] Outre h Program 2021-09-06 2021-09-06 Office JONI Xiong 6400 [id number] [place] 14:00:00 15:02:[address] [id number] Health [id number] 2021-07-29 2021-07-29 Telephone Catherine Castillo JONI 6400 [id number]. [id number] [place] 00:00:00 00:00:[address] [id number] Health [id number] 2021-04-27 2021-04-27 Office JONI Xiong 6400 [id number] [place] 09:51:46 10:38:[address] [id number] Health [id number] 2021-04-11 2021-04-11 Telephone Gali, Myrna [facility] [id number]. [id number] [place] 00:00:00 00:00:00 Myrna Talbert [facility] [id number] Health [facility] [place] [id number] 2021-04-08 2021-04-09 Inpatient [facility] [id number] Memoria 10:12:00 20:30:[address] 2021-04-08 2021-04-09 Outpatient Shashi DIAMOND [facility] [id number] 05:12:00 15:30:00 Lucina [address] 2021-04-08 2021-04-09 Outpatient Shashi [facility] [id number] 05:12:00 15:30:00 Lucina [address] 2021-04-08 2021-04-09 Inpatient U SHASHI, [facility] CAR 1288 [facility] 05:12:00 15:30:00 LUCINA 2020-07-21 2020-07-21 [id number] Univers 14:21:42 14:50:41 Visit Katlyn [place] [id number] [phone] [place] dical nal 204 [facility] 2020-07-21 2020-07-21 [facility] [id number] Univers 14:15:00 14:15:00 KATLYN saldaña [facility] 2020-06-22 2020-06-22 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, 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 Main [facility] 1.2.8 [id number] Univers 10:50:31 11:05:31 Visit Katlyn Cote [id number] [place] [phone] Mi dical nal 353 [facility] 2020-06-22 2020-06-22 Outpatient [facility] [id number] Univers 10:45:00 10:45:00 KATLYN saldaña [facility] 2020-06-22 2020-06-22 Orders Doctor ИРИНА [id number] Univers 00:00:00 00:00:00 Only Unassigned, AAMIR [id number] ity of [place] [facility] [id number] Adriel as [phone] [address] 2020-06-16 2020-06-16 [facility] [id number] Univers 10:34:05 11:54:14 Visit Katlyn Crawford [id number] [place] [phone] Mi dical nal 204 [facility] 2020-06-16 2020-06-16 Outpatient R [facility] [id number] [facility] 10:30:00 10:30:00 KATLYN saldaña [facility] Results Test Description Test Time Test Comments Results Result Comments Source ECG 12 lead 2021-09-06 19:24:00 Test Item Value Reference Range Interpretation Comme nts Lab Interpretation (test code = 13864-0) Normal [facility]2021-10-16 13:01:00 Test Item Value Reference Range Interpretation Comments Glucose Lvl (test code = Glucose Lvl) 86 70-99 [facility]2021-10-16 13:01:00 Test Item Value Reference Range Interpretation Comments BUN (test code = BUN) 13 7-22 [facility]2021-10-16 13:01:00 Test Item Value Reference Range Interpretation Comments Creatinine Lvl (test code = Creatinine 0.66 0.50-1.40 Lvl) [facility]2021-10-16 13:01:00 Test Item Value Reference Range Interpretation Comments Sodium Lvl (test code = Sodium Lvl) 138 135-145 [facility]2021-10-16 13:01:00 Test Item Value Reference Range Interpretation Comments Potassium Lvl (test code = Potassium 3.6 3.5-5.1 Lvl) [facility]2021-10-16 13:01:00 Test Item Value Reference Range Interpretation Comments Chloride Lvl (test code = Chloride Lvl) 106 95-109 [facility]2021-10-16 13:01:00 Test Item Value Reference Range Interpretation Comments CO2 (test code = CO2) 26 24-32 [facility]2021-10-16 13:01:00 Test Item Value Reference Range Interpretation Comments Calcium Lvl (test code = Calcium Lvl) 8.0 8.5-10.5 [facility]2021-10-16 13:01:00 Test Item Value Reference Range Interpretation Comments AGAP (test code = AGAP) 9.6 10.0-20.0 [facility]2021-10-16 13:01:00 Test Item Value Reference Range Interpretation Comments eGFR (test code = eGFR) 86 [facility]2021-10-16 13:01:00 Test Item Value Reference Range Interpretation Comments Magnesium Lvl (test code = Magnesium 2.2 1.8-2.4 Lvl) [facility]2021-10-16 13:01:00 Test Item Value Reference Range Interpretation Comments Phosphorus (test code = Phosphorus) 3.1 2.5-4.5 [facility]hrvmryWXRTFWVGIN6457-91-62 13:01:00 Test Item Value Reference Range Interpretation Comments WBC (test code = WBC) 7.0 3.7-10.4 [facility] ClinicEutjsljTNXFHAZUAM3683-17-29 13:01:00 Test Item Value Reference Range Interpretation Comments RBC (test code = RBC) 4.04 4.20-5.40 [facility] ClinicJqxugieAIUBYSMASB5248-44-50 13:01:00 Test Item Value Reference Range Interpretation Comments Hgb (test code = Hgb) 13.0 12.0-16.0 [facility] ClinicWihbfwhPAMNXXEVYR0177-28-35 13:01:00 Test Item Value Reference Range Interpretation Comments Hct (test code = Hct) 38.6 36.0-48.0 [facility] ClinicHmutvflEJTFFZZISO6836-18-33 13:01:00 Test Item Value Reference Range Interpretation Comments MCV (test code = MCV) 95.6 80.0-98.0 [facility] ClinicSlzmxpgALDFRKIQIQ3584-73-09 13:01:00 Test Item Value Reference Range Interpretation Comments MCH (test code = MCH) 32.3 pg 27.0-31.0 [facility] ClinicRajabxjPWGDCEHFLK5994-95-49 13:01:00 Test Item Value Reference Range Interpretation Comments MCHC (test code = MCHC) 33.7 32.0-36.0 [facility] ClinicKzzcovkLWROZQSJTP9766-02-57 13:01:00 Test Item Value Reference Range Interpretation Comments RDW (test code = RDW) 12.8 11.5-14.5 [facility] ClinicEhbprauBERGBKNWVH1819-91-42 13:01:00 Test Item Value Reference Range Interpretation Comments Platelet (test code = Platelet) 176 133-450 [facility] ClinicTipmkcjKKRUZKLAVG5208-03-20 13:01:00 Test Item Value Reference Range Interpretation Comments MPV (test code = MPV) 8.0 7.4-10.4 [facility] ClinicBhtampiAQXOABQOHQ8725-82-29 13:01:00 Test Item Value Reference Range Interpretation Comments Segs (test code = Segs) 69.5 45.0-75.0 [facility] ClinicHyegfotTLFJHJOPVZ0446-54-54 13:01:00 Test Item Value Reference Range Interpretation Comments Lymphocytes (test code = Lymphocytes) 19.2 20.0-40.0 [facility] ClinicLtybaztSNCKWZGJHV7137-75-17 13:01:00 Test Item Value Reference Range Interpretation Comments Monocytes (test code = Monocytes) 8.7 2.0-12.0 [facility] ClinicTmktkqnYZAAHMDXCO4854-47-74 13:01:00 Test Item Value Reference Range Interpretation Comments Eosinophils (test code = 2.1 See_Comment [A utomated message] The Eosinophils) system which ge nerated this result tra nsmitted reference range : <=4.0. The reference r juan pablo was not used to int erpret this result as normal/abnormal . [facility] ClinicQrruoduEAXUBZISPE6410-76-92 13:01:00 Test Item Value Reference Range Interpretation Comments Basophils (test code = 0.5 See_Comment [Aut omated message] The Basophils) system which ge nerated this result tra nsmitted reference range : <=1.0. The reference r juan pablo was not used to int erpret this result as normal/abnormal . [facility] ClinicXuilwmtLPULYCTACK9214-13-02 13:01:00 Test Item Value Reference Range Interpretation Comments Neutrophils # (test code = Neutrophils 4.9 1.5-8.1 #) [facility] ClinicCdfhzdnDZQCTTEIWD3865-04-54 13:01:00 Test Item Value Reference Range Interpretation Comments Lymphocytes # (test code = Lymphocytes 1.3 1.0-5.5 #) [facility] ClinicCkjamwuWKVLJFPKJM1974-28-78 13:01:00 Test Item Value Reference Range Interpretation Comments Monocytes # (test code 0.6 See_Comment [Aut omated message] The = Monocytes #) system which generated this result tra nsmitted reference range : <=0.8. The reference r juan pablo was not used to int erpret this result as normal/abnormal . [facility] ClinicWkvdihwDOCQVLQWVD1662-03-87 13:01:00 Test Item Value Reference Range Interpretation Comments Eosinophils # (test code 0.1 See_Comment [A utomated message] The = Eosinophils #) system whic h generated this result tra nsmitted reference range : <=0.5. The reference r juan pablo was not used to int erpret this result as normal/abnormal . [facility] D[facility]ONAGPYQFP3279-52-46 13:01:00 Test Item Value Reference Range Interpretation Comments Ca Ion WB (test code = Ca Ion WB) 1.08 1.05-1.25 [facility] HospitalPAR[facility]YROID [id number] 13:01:00 Test Item Value Reference Range Interpretation Comments Ca Norm WB (test code = Ca Norm WB) 1.08 1.05-1.25 [facility]2021-10-15 22:21:00 Test Item Value Reference Range Interpretation Comments Glucose Lvl (test code = Glucose Lvl) 87 70-99 [facility]2021-10-15 22:21:00 Test Item Value Reference Range Interpretation Comments BUN (test code = BUN) 15 7-22 [facility]2021-10-15 22:21:00 Test Item Value Reference Range Interpretation Comments Creatinine Lvl (test code = Creatinine 0.78 0.50-1.40 Lvl) [facility]2021-10-15 22:21:00 Test Item Value Reference Range Interpretation Comments Sodium Lvl (test code = Sodium Lvl) 141 135-145 [facility]2021-10-15 22:21:00 Test Item Value Reference Range Interpretation Comments Potassium Lvl (test code = Potassium 3.8 3.5-5.1 Lvl) [facility]2021-10-15 22:21:00 Test Item Value Reference Range Interpretation Comments Chloride Lvl (test code = Chloride Lvl) 107 95-109 [facility]2021-10-15 22:21:00 Test Item Value Reference Range Interpretation Comments CO2 (test code = CO2) 29 24-32 [facility]2021-10-15 22:21:00 Test Item Value Reference Range Interpretation Comments Calcium Lvl (test code = Calcium Lvl) 8.2 8.5-10.5 [facility]2021-10-15 22:21:00 Test Item Value Reference Range Interpretation Comments AGAP (test code = AGAP) 8.8 10.0-20.0 [facility] HospitalChronicle Solutions [id number] 22:21:00 Test Item Value Reference Range Interpretation Comments eGFR (test code = eGFR) 74 [facility]2021-10-15 11:25:00 Test Item Value Reference Range Interpretation Comments U Amph Scr (test code Negative *NA*(04/08/21 = U Amph Scr) 6:25 AM) [facility]2021-10-15 11:25:00 Test Item Value Reference Range Interpretation Comments U Bharati Scr (test code Negative *NA*(04/08/21 = U Bharati Scr) 6:25 AM) [facility] [id number] 11:25:00 Test Item Value Reference Range Interpretation Comments U Benzodiaz Scr (test Negative *NA*(04/08/21 code = U Benzodiaz Scr) 6:25 AM) [facility] [id number] 11:25:00 Test Item Value Reference Range Interpretation Comments U Cocaine Scr (test Negative *NA*(04/08/21 code = U Cocaine Scr) 6:25 AM) [facility] [id number] 11:25:00 Test Item Value Reference Range Interpretation Comments U Cannab Scr (test Negative *NA*(04/08/21 code = U Cannab Scr) 6:25 AM) [facility] [id number] 11:25:00 Test Item Value Reference Range Interpretation Comments U Opiate Scr (test Positive *ABN*(04/08/21 code = U Opiate Scr) 6:25 AM) [facility] [id number] 11:25:00 Test Item Value Reference Range Interpretation Comments U Phencyclidine Scr (test Negative code = U Phencyclidine *NA*(04/08/21 6:25 Scr) AM) [facility] [id number] 11:25:00 Test Item Value Reference Range Interpretation Comments U Methadone Scr (test Negative *NA*(04/08/21 code = U Methadone Scr) 6:25 AM) [facility] YYOHQR1509-12-15 11:25:00 Test Item Value Reference Range Interpretation Comments U Propoxyph Scr (test Negative *NA*(04/08/21 code = U Propoxyph Scr) 6:25 AM) [facility] [id number] 11:25:00 Test Item Value Reference Range Interpretation Comments UDS Note (test code = See Note (04/08/21 6:25 UDS Note) AM) [facility] [id number] 11:25:00 Test Item Value Reference Range Interpretation Comments UA Color (test code = Yellow *NA*(04/08/21 UA Color) 6:25 AM) [facility] [id number] 11:25:00 Test Item Value Reference Range Interpretation Comments UA Turbidity (test code = Clear (04/08/21 6:25 UA Turbidity) AM) [facility] AND [id number] 11:25:00 Test Item Value Reference Range Interpretation Comments UA Spec Grav (test code = UA Spec 1.010 1 Grav) [facility] AND [id number] 11:25:00 Test Item Value Reference Range Interpretation Comments UA pH (test code = UA pH) 7.5 1 5.0-8.0 [facility] AND [id number] 11:25:00 Test Item Value Reference Range Interpretation Comments UA Protein (test code = UA Negative mg/dL Protein) [facility] AND [id number] 11:25:00 Test Item Value Reference Range Interpretation Comments UA Glucose (test code = UA Negative mg/dL Glucose) [facility] AND [id number] 11:25:00 Test Item Value Reference Range Interpretation Comments UA Ketones (test code = UA Negative mg/dL Ketones) [facility] AND [id number] 11:25:00 Test Item Value Reference Range Interpretation Comments UA Bili (test code = Negative *NA*(04/08/21 UA Bili) 6:25 AM) [facility] AND [id number] 11:25:00 Test Item Value Reference Range Interpretation Comments UA Blood (test code = Negative (04/08/21 6:25 UA Blood) AM) [facility] AND [id number] 11:25:00 Test Item Value Reference Range Interpretation Comments UA Urobilinogen (test code = UA 0.2 0.1-1.0 Urobilinogen) [facility] AND [id number] 11:25:00 Test Item Value Reference Range Interpretation Comments UA Nitrite (test code Negative (04/08/21 6:25 = UA Nitrite) AM) [facility] AND [id number] 11:25:00 Test Item Value Reference Range Interpretation Comments UA Leuk Est (test Negative (04/08/21 6:25 code = UA Leuk Est) AM) [facility] AND [id number] 11:25:00 Test Item Value Reference Range Interpretation Comments UA Sq Epi (test code = None Seen (04/08/21 UA Sq Epi) 6:25 AM) [facility] AND [id number] 11:25:00 Test Item Value Reference Range Interpretation Comments UA WBC (test code = 1 See_Comment [Automa alex message] The UA WBC) system which ge nerated this result transmit alex reference range : <=5. The reference range was not used to interpr et this result as avis l/abnormal. [facility]oney[facility] AND [id number] 11:25:00 Test Item Value Reference Range Interpretation Comments UA RBC (test code = 1 See_Comment [Automa alex message] The UA RBC) system which ge nerated this result transmit alex reference range : <=2. The reference range was not used to interpr et this result as avis l/abnormal. [facility] Learn with HomerCHEM [id number] 11:20:00 Test Item Value Reference Range Interpretation Comments Lactic Acid Lvl (test code = Lactic 1.1 0.5-2.2 Acid Lvl) [facility] [employer] [id number] 11:12:00 Test Item Value Reference Range Interpretation Comments ABO/Rh (test code = ABO/Rh) B NEG [facility] [employer] [id number] 11:12:00 Test Item Value Reference Range Interpretation Comments Antibody Scrn (test Negative (04/08/21 code = Antibody Scrn) 6:12 AM) [facility] NorthwesttheAudienceCARDIAC [id number] 11:12:00 Test Item Value Reference Range Interpretation Comments Troponin-I (test code 0.02 See_Comment [Auto mated message] The = Troponin-I) system which g enerated this result transmit alex reference range : <=0.40. The reference r juan pablo was not used to interpr et this result as avis l/abnormal. [facility] UjoaijwOJDLAIHUUI2318-58-23 11:12:00 Test Item Value Reference Range Interpretation Comments PT (test code = PT) 13.3 s 12.0-14.7 [facility] HospitalFspobagJLEWQVUJYR4515-36-03 11:12:00 Test Item Value Reference Range Interpretation Comments INR (test code = INR) 1.02 1 0.85-1.17 [facility] NorthwestYwcfiviBLRFXQVTCE2033-83-47 11:12:00 Test Item Value Reference Range Interpretation Comments PTT (test code = PTT) 30.9 s 22.9-35.8 [place] [id number] 11:08:00 Test Item Value Reference Range Interpretation Comments Creatinine Lvl (test code = Creatinine 0.62 0.50-1.40 Lvl) [place] [id number] 11:08:00 Test Item Value Reference Range Interpretation Comments Sodium Lvl (test code = Sodium Lvl) 142 135-145 [place] [id number] 11:08:00 Test Item Value Reference Range Interpretation Comments Potassium Lvl (test code = Potassium 4.0 3.5-5.1 Lvl) [place] [id number] 11:08:00 Test Item Value Reference Range Interpretation Comments Chloride Lvl (test code = Chloride Lvl) 108 95-109 [place] [id number] 11:08:00 Test Item Value Reference Range Interpretation Comments CO2 (test code = CO2) 28 24-32 [place] [id number] 11:08:00 Test Item Value Reference Range Interpretation Comments Calcium Lvl (test code = Calcium Lvl) 8.6 8.5-10.5 [place] 847871-10-15 11:08:00 Test Item Value Reference Range Interpretation Comments AGAP (test code = AGAP) 10.0 10.0-20.0 [place] [id number] 11:08:00 Test Item Value Reference Range Interpretation Comments B/C Ratio (test code = B/C Ratio) 27 1 6-25 [place] 847871-10-15 11:08:00 Test Item Value Reference Range Interpretation Comments eGFR (test code = eGFR) 88 [place] [address]-10-15 11:08:00 Test Item Value Reference Range Interpretation Comments ALT (test code = ALT) 23 See_Comment [Auto mated message] The system which ge nerated this result transmit alex reference range : <=65. The reference range was not used to interpr et this result as avis l/abnormal. [place] 847871-10-15 11:08:00 Test Item Value Reference Range Interpretation Comments Albumin Lvl (test code = Albumin Lvl) 3.1 3.5-5.0 [place] 847871-10-15 11:08:00 Test Item Value Reference Range Interpretation Comments Alk Phos (test code = Alk Phos) 54 39-136 [place] 847871-10-15 11:08:00 Test Item Value Reference Range Interpretation Comments Bili Total (test code = Bili Total) 0.4 0.2-1.3 [place] 847871-10-15 11:08:00 Test Item Value Reference Range Interpretation Comments Total Protein (test code = Total 6.4 6.4-8.4 Protein) [place] 847871-10-15 11:08:00 Test Item Value Reference Range Interpretation Comments AST (test code = AST) 22 See_Comment [Auto mated message] The system which ge nerated this result transmit alex reference range : <=37. The reference range was not used to interpr et this result as avis l/abnormal. [place] 847871-10-15 11:08:00 Test Item Value Reference Range Interpretation Comments Globulin (test code = Globulin) 3.3 2.7-4.2 [place] 847871-10-15 11:08:00 Test Item Value Reference Range Interpretation Comments A/G Ratio (test code = A/G Ratio) 0.9 1 0.7-1.6 [place] 847871-10-15 11:08:00 Test Item Value Reference Range Interpretation Comments Magnesium Lvl (test code = Magnesium 2.4 1.8-2.4 Lvl) [place] 847871-10-15 11:08:00 Test Item Value Reference Range Interpretation Comments Phosphorus (test code = Phosphorus) 3.6 2.5-4.5 [place] 252551-10-15 11:08:00 Test Item Value Reference Range Interpretation Comments WBC (test code = WBC) 5.2 3.7-10.4 [place] 8[address]-10-15 11:08:00 Test Item Value Reference Range Interpretation Comments RBC (test code = RBC) 4.10 4.20-5.40 [place] 826[address]-10-15 11:08:00 Test Item Value Reference Range Interpretation Comments Hgb (test code = Hgb) 13.2 12.0-16.0 [place] 252551-10-15 11:08:00 Test Item Value Reference Range Interpretation Comments Hct (test code = Hct) 39.2 36.0-48.0 [place] 252551-10-15 11:08:00 Test Item Value Reference Range Interpretation Comments MCV (test code = MCV) 95.6 80.0-98.0 [place] 252551-10-15 11:08:00 Test Item Value Reference Range Interpretation Comments MCH (test code = MCH) 32.3 pg 27.0-31.0 [place] 252551-10-15 11:08:00 Test Item Value Reference Range Interpretation Comments MCHC (test code = MCHC) 33.7 32.0-36.0 [place] 252551-10-15 11:08:00 Test Item Value Reference Range Interpretation Comments RDW (test code = RDW) 12.6 11.5-14.5 [place] 252551-10-15 11:08:00 Test Item Value Reference Range Interpretation Comments Platelet (test code = Platelet) 186 133-450 [facility] ClinicKtuhivdHJRJULBZQF8389-72-80 11:08:00 Test Item Value Reference Range Interpretation Comments MPV (test code = MPV) 8.0 7.4-10.4 [place] 252551-10-15 11:08:00 Test Item Value Reference Range Interpretation Comments Segs (test code = Segs) 53.6 45.0-75.0 [place] 252551-10-15 11:08:00 Test Item Value Reference Range Interpretation Comments Lymphocytes (test code = Lymphocytes) 34.7 20.0-40.0 [place] 252551-10-15 11:08:00 Test Item Value Reference Range Interpretation Comments Monocytes (test code = Monocytes) 9.1 2.0-12.0 [place] 252551-10-15 11:08:00 Test Item Value Reference Range Interpretation Comments Eosinophils (test code = 2.0 See_Comment [A utomated message] The Eosinophils) system which ge nerated this result tra nsmitted reference range : <=4.0. The reference r juan pablo was not used to int erpret this result as normal/abnormal . [facility] ClinicLrcogaoLYFCOIQITP5696-09-37 11:08:00 Test Item Value Reference Range Interpretation Comments Basophils (test code = 0.6 See_Comment [Aut omated message] The Basophils) system which ge nerated this result tra nsmitted reference range : <=1.0. The reference r juan pablo was not used to int erpret this result as normal/abnormal . [facility] ClinicJuieyukIVGPSWFVGP5665-74-35 11:08:00 Test Item Value Reference Range Interpretation Comments Neutrophils # (test code = Neutrophils 2.8 1.5-8.1 #) [facility] ClinicBigvyivJGUEMTFQZQ1570-90-56 11:08:00 Test Item Value Reference Range Interpretation Comments Lymphocytes # (test code = Lymphocytes 1.8 1.0-5.5 #) [facility] ClinicExecvvbQGBOLIQFEO2160-61-68 11:08:00 Test Item Value Reference Range Interpretation Comments Monocytes # (test code 0.5 See_Comment [Aut omated message] The = Monocytes #) system which generated this result tra nsmitted reference range : <=0.8. The reference r juan pablo was not used to int erpret this result as normal/abnormal . [facility] ClinicHuirqnwLIFPCMXKVZ6275-59-84 11:08:00 Test Item Value Reference Range Interpretation Comments Eosinophils # (test code 0.1 See_Comment [A utomated message] The = Eosinophils #) system whic h generated this result tra nsmitted reference range : <=0.5. The reference r juan pablo was not used to int erpret this result as normal/abnormal . [facility]RE[facility] 11:08:00 Test Item Value Reference Range Interpretation Comments Trig (test code = Trig) 61 [place] 628081-10-15 11:08:00 Test Item Value Reference Range Interpretation Comments Chol (test code = Chol) 254 [place] 628081-10-15 11:08:00 Test Item Value Reference Range Interpretation Comments HDL (test code = HDL) 65 [place] 628081-10-15 11:08:00 Test Item Value Reference Range Interpretation Comments CHD Risk (test code = CHD Risk) 3.91 1 3.90-5.80 [place] 628081-10-15 11:08:00 Test Item Value Reference Range Interpretation Comments LDL (Calculated) (test code = LDL 177 (Calculated)) [place] 628081-10-15 11:08:00 Test Item Value Reference Range Interpretation Comments VLDL (test code = VLDL) 12 1 [facility] HospitalPARATHYROID [id number] 11:08:00 Test Item Value Reference Range Interpretation Comments Ca Ion WB (test code = Ca Ion WB) 1.16 1.05-1.25 [facility] HospitalPARATHYROID [id number] 11:08:00 Test Item Value Reference Range Interpretation Comments Ca Norm WB (test code = Ca Norm WB) 1.13 1.05-1.25 [facility] HospitalSPECIAL [id number] 11:08:00 Test Item Value Reference Range Interpretation Comments Hgb A1C (test code = Hgb A1C) 5.4 [facility] HospitalCHEM [id number] 11:08:00 Test Item Value Reference Range Interpretation Comments Glucose Lvl (test code = Glucose Lvl) 89 70-99 [facility] HospitalCHEM [id number] 11:08:00 Test Item Value Reference Range Interpretation Comments BUN (test code = BUN) 17 7-22 [id number] 10:45:00 Test Item Value Reference Range Interpretation Comments Coronavirus (COVID-19) Not Detected ROZ (test code = (04/08/21 5:45 AM) Coronavirus (COVID-19) ROZ) [facility] URINALYSIS, [id number] 20:46:00 Test Item Value Reference Range Interpretation Comments POCT U SP GRAV (test code = 1.015 mg/dl 1.005-1.025 3255) POCT PH U (test code = 3254) 8.0 mg/dl 5-8 POCT U LEUK EST (test code = negative Negative - Negative 3263) POCT U NIT (test code = 3262) negative Negative - Negative POCT U PROT (test code = negative Negative - Negative 3259) POCT U GLU (test code = 3256) negative Negative - Negative POCT U KETONE (test code = negative Negative - Negative 3258) POCT U UROBILI (test code = 0.2 mg/dl 0.2-1 0) POCT U BILI (test code = negative Negative - Negative 3261) POCT U BLD (test code = 3257) trace Negative - Negative POCT U COLOR (test code = yellow 3266) POCT U APPEAR (test code = clear 3267) [facility] URINALYSIS, [id number] 20:46:00 Test Item Value Reference Range Interpretation Comments POCT U SP GRAV (test code = 1.015 mg/dl 1.005-1.025 3255) POCT PH U (test code = 3254) 8.0 mg/dl 5-8 POCT U LEUK EST (test code = negative Negative - Negative 3263) POCT U NIT (test code = 3262) negative Negative - Negative POCT U PROT (test code = negative Negative - Negative 3259) POCT U GLU (test code = 3256) negative Negative - Negative POCT U KETONE (test code = negative Negative - Negative 3258) POCT U UROBILI (test code = 0.2 mg/dl 0.2-1 3260) POCT U BILI (test code = negative Negative - Negative 3261) POCT U BLD (test code = 3257) trace Negative - Negative POCT U COLOR (test code = yellow 3266) POCT U APPEAR (test code = clear 3267) [facility] URINALYSIS, [id number] 19:26:00 Test Item Value Reference Range Interpretation Comments POCT U SP GRAV (test code = 1.020 mg/dl 1.005-1.025 3255) POCT PH U (test code = 3254) 8.0 mg/dl 5-8 POCT U LEUK EST (test code = Small Negative - Negative 3263) POCT U NIT (test code = 3262) Negative Negative - Negative POCT U PROT (test code = Negative Negative - Negative 3259) POCT U GLU (test code = 3256) Negative Negative - Negative POCT U KETONE (test code = Negative Negative - Negative 3258) POCT U UROBILI (test code = 0.2 mg/dl 0.2-1 3260) POCT U BILI (test code = Negative Negative - Negative 3261) POCT U BLD (test code = 3257) Negative Negative - Negative POCT U COLOR (test code = yellow 3266) POCT U APPEAR (test code = clear 3267) Lab Interpretation (test code Abnormal = 86868-2) [facility] URINALYSIS, [id number] 19:26:00 Test Item Value Reference Range Interpretation Comments POCT U SP GRAV (test code = 1.020 mg/dl 1.005-1.025 3255) POCT PH U (test code = 3254) 8.0 mg/dl 5-8 POCT U LEUK EST (test code = Small Negative - Negative 3263) POCT U NIT (test code = 3262) Negative Negative - Negative POCT U PROT (test code = Negative Negative - Negative 325) POCT U GLU (test code = 3256) Negative Negative - Negative POCT U KETONE (test code = Negative Negative - Negative 3258) POCT U UROBILI (test code = 0.2 mg/dl 0.2-1 3260) POCT U BILI (test code = Negative Negative - Negative 326) POCT U BLD (test code = 3257) Negative Negative - Negative POCT U COLOR (test code = yellow 3266) POCT U APPEAR (test code = clear 326) Lab Interpretation (test code Abnormal = 97808-6) [facility]
--- NOTE | 2022-11-16 17:29 | RAD REPORT ---
EXAM DESCRIPTION: RAD - Pelvis - 11/16/2022 5:02 pm CLINICAL HISTORY: Pelvic pain status post injury FINDINGS: No fracture or dislocation is seen. Bones are osteoporotic
--- NOTE | 2022-11-16 17:30 | RAD REPORT ---
EXAM DESCRIPTION: RAD - Ribs Left - 11/16/2022 5:02 pm CLINICAL HISTORY: Rib pain FINDINGS: No fracture is seen
--- NOTE | 2022-11-16 17:35 | EDPHYS ---
Physician Documentation [facility] Name: Tata Lainez Age: 77 yrs Sex: Female : 1945 Arrival Date: 11/16/2022 Time: 15:32 Bed 13 Private MD: ED Physician Gal Hobson HPI: 11/16 15:53 This 77 yrs old Female presents to ER via Ambulatory with complaints of Fall bs3 Injury. 15:53 77-year-old history of pacemaker per documented past medical history of CAD bs3 hypertension and hyperlipidemia however patient denies any other medical problems she has had left sided low back pain for approximately 4 days she notes tripping and falling this past Sunday after a cockroach was seen in her closet, she fell reaching out landing on her hands since then she has been able to ambulate but has had a slight intermittent pain she denies numbness tingling or weakness in her extremities no nausea no vomiting no urinary or bowel symptoms denies any other injuries except for her low back. Historical: - Allergies: 15:43 No Known Allergies; aa5 - PMHx: 15:43 CAD; constipation; High Cholesterol; Hypertension; Pacemaker; aa5 - Immunization history:: Adult Immunizations unknown. - Social history:: Smoking status: Patient denies any tobacco usage or history of. ROS: 15:53 Constitutional: Negative for fever, chills bs3 15:53 All other systems are negative. Exam: 15:53 Constitutional: This is a well developed, well nourished patient who is awake, alert, bs3 and in no acute distress. Head/Face: Normocephalic, atraumatic. Eyes: Pupils equal round and reactive to light, extra-ocular motions intact. Lids and lashes normal. ENT: mmm, no posterior phyarngeal erythema Neck: Trachea midline, no thyromegaly, no neck stiffness Chest/axilla: Normal chest wall appearance and motion. Nontender with no deformity. No lesions are appreciated. Cardiovascular: Regular rate and rhythm with a normal S1 and S2. symmetric pulses in upper extremities Respiratory: Lungs have equal breath sounds bilaterally, clear to auscultation, no respiratory distress Abdomen/GI: Soft, non-tender, no rebound or guarding Back: She has no midline spinal tenderness or pain is on the left lateral aspect it is difficult to fully assess as she has a small space between her lower ribs and her pelvis but she has mild tenderness of the lower ribs versus the upper pelvic region MS/ Extremity: Pulses equal, no cyanosis. Neurovascular intact. Full, normal range of motion. Neuro: Awake and alert, GCS 15, oriented to person, place, time, and situation. Cranial nerves II-XII grossly intact. Motor strength 5/5 in all extremities. Sensory grossly intact. Psych: Awake, alert, with orientation to person, place and time. Behavior, mood, and affect are within normal limits. Vital Signs: 15:37 BP 162 / 74; Pulse 64; Resp 16 S; Temp 98(TE); Pulse Ox 98% on R/A; Weight 54.43 kg aa5 (R); Height 5 ft. 6 in. ; 16:36 BP 140 / 70; Pulse 60; Resp 16; Pulse Ox 100% on R/A; vg1 17:28 BP 147 / 70; Pulse 72; Resp 16; Pulse Ox 99% on R/A; vg1 18:26 BP 143 / 75; Pulse 67; Resp 16; Pulse Ox 99% on R/A; vg1 15:37 Body Mass Index 19.37 (54.43 kg, 167.64 cm) aa5 MDM: 15:34 Patient medically screened. bs3 15:53 Data reviewed: vital signs, nurses notes. ED course: Doubt fracture but will rule out bs3 small rib fracture/pelvic fracture. 17:33 ED course: X-rays negative advised outpatient follow-up with endocrinology for bs3 osteoporosis. 11/16 15:52 Order name: Ribs Left XRAY; Complete Time: 17:33 bs3 11/16 15:52 Order name: Pelvis XRAY; Complete Time: 17:33 bs3 Administered Medications: No medications were administered Disposition Summary: 11/16/22 17:34 Discharge Ordered Location: Home bs3 Problem: new bs3 Symptoms: have improved bs3 Condition: Stable bs3 Diagnosis - Fall on same level, unspecified bs3 - Contusion of back wall of thorax bs3 - Contusion of lower back and pelvis bs3 Followup: bs3 - With: Private Physician - When: 5 - 6 days - Reason: Re-evaluation by your physician Discharge Instructions: - Discharge Summary Sheet bs3 - Contusion, [id number] bs3 Forms: - Medication Reconciliation Form bs3 - Thank You Letter bs3 - Antibiotic Education bs3 - Prescription Opioid Use bs3 Signatures: Dispatcher [employer] Leonora Joy RN RN aa5 Gal Hobson MD MD bs3
--- NOTE | 2022-11-16 17:35 | ER ---
Nurse's Notes [facility] Name: Tata Lainez Age: 77 yrs Sex: Female : 1945 Arrival Date: 11/16/2022 Time: 15:32 Bed 13 Private MD: Diagnosis: Fall on same level, unspecified;Contusion of back wall of thorax;Contusion of lower back and pelvis Presentation: 11/16 15:37 Chief complaint: Patient states: fell on Sunday chasing a cockroach. Pt reports falling aa5 forwards. Pt c/o pain to mid back pain. 15:37 Onset of symptoms was October 2022. aa5 15:37 Acuity: LISA 4 aa5 15:37 Method Of Arrival: Ambulatory aa5 15:37 Coronavirus screen: At this time, the client does not indicate any symptoms associated aa5 with coronavirus-19. Ebola Screen: Patient denies travel to an Ebola-affected area in the 21 days before illness onset. Initial Sepsis Screen: Does the patient meet any 2 criteria? No. Patient's initial sepsis screen is negative. Does the patient have a suspected source of infection? No. Patient's initial sepsis screen is negative. Risk Assessment: Do you want to hurt yourself or someone else? Patient reports no desire to harm self or others. Historical: - Allergies: 15:43 No Known Allergies; aa5 - PMHx: 15:43 CAD; constipation; High Cholesterol; Hypertension; Pacemaker; aa5 - Immunization history:: Adult Immunizations unknown. - Social history:: Smoking status: Patient denies any tobacco usage or history of. Screenin:05 [facility] ED Fall Risk Assessment (Adult) History of falling in the last 3 months, vg1 including since admission Yes- single mechanical fall (1 pt) Confusion or Disorientation No (0 pts) Intoxicated or Sedated No (0 pts) Impaired Gait No (0 pts) Mobility Assist Device Used No (0 pt) Altered Elimination No (0 pt) Score/Fall Risk Level 0 - 2 = Low Risk Oriented to surroundings, Maintained a safe environment, Educated pt \T\ family on fall prevention, incl call for assistance when getting out of bed, Assessed \T\ reinforced patient's understanding of fall precautions. Abuse screen: Denies threats or abuse. Denies injuries from another. Nutritional screening: No deficits noted. Tuberculosis screening: No symptoms or risk factors identified. Assessment: 16:05 Pain: Complains of pain in left lateral posterior chest Pain currently is 0 out of 10 vg1 on a pain scale. Aggravated by repositioning. Neuro: Level of Consciousness is awake, alert, obeys commands, Oriented to person, place, time, situation. Cardiovascular: Patient's skin is warm and dry. Respiratory: Airway is patent Respiratory effort is even, unlabored. GI: No signs and/or symptoms were reported involving the gastrointestinal system. Derm: Skin is pink, warm \T\ dry. Musculoskeletal: Circulation, motion, and sensation intact. 16:36 Reassessment: Patient appears in no apparent distress at this time. No changes from vg1 previously documented assessment. Patient and/or family updated on plan of care and expected duration. Pain level reassessed. Patient is alert, oriented x 3, equal unlabored respirations, skin warm/dry/pink. 17:28 Reassessment: Patient appears in no apparent distress at this time. No changes from vg1 previously documented assessment. Patient and/or family updated on plan of care and expected duration. Pain level reassessed. Patient is alert, oriented x 3, equal unlabored respirations, skin warm/dry/pink. 18:25 Reassessment: Patient appears in no apparent distress at this time. Patient and/or vg1 family updated on plan of care and expected duration. Pain level reassessed. Patient states feeling better. Vital Signs: 15:37 BP 162 / 74; Pulse 64; Resp 16 S; Temp 98(TE); Pulse Ox 98% on R/A; Weight 54.43 kg aa5 (R); Height 5 ft. 6 in. ; 16:36 BP 140 / 70; Pulse 60; Resp 16; Pulse Ox 100% on R/A; vg1 17:28 BP 147 / 70; Pulse 72; Resp 16; Pulse Ox 99% on R/A; vg1 18:26 BP 143 / 75; Pulse 67; Resp 16; Pulse Ox 99% on R/A; vg1 15:37 Body Mass Index 19.37 (54.43 kg, 167.64 cm) aa5 ED Course: 15:34 Patient arrived in ED. ts1 15:34 Gal Hobson MD is Attending Physician. bs3 15:37 Arm band placed on Patient placed in an exam room, on a stretcher. aa5 15:45 Triage completed. aa5 15:58 Sandy Florentino, RN is Primary Nurse. vg1 16:05 Patient has correct armband on for positive identification. Bed in low position. Call vg1 light in reach. Side rails up X2. Adult w/ patient. 16:05 No provider procedures requiring assistance completed. Patient did not have IV access vg1 during this emergency room visit. 17:03 Ribs Left XRAY In Process Unspecified. EDMS 17:03 Pelvis XRAY In Process Unspecified. EDMS Administered Medications: No medications were administered Medication: 16:07 VIS not applicable for this client. vg1 Outcome: 17:34 Discharge ordered by . bs3 18:26 Discharged to home ambulatory, with family. vg1 18:26 Condition: good 18:26 Discharge instructions given to patient, Instructed on discharge instructions, follow up and referral plans. Demonstrated understanding of instructions, follow-up care. 18:26 Patient left the ED. vg1 Signatures: Dispatcher [employer] EDLeonora Booth, RN RN aa5 Sandy Florentino, RN RN vg1 Gal Hobson MD MD bs3 Beba Carpenter, PAS PAS ts1
[2022-11-16 18:31] VITALS: TEMP 98
[2022-11-16 18:48] VITALS: BP 144/75; O2SAT 98
== END 2022-11-16 18:26 | disposition home or self-care (01) ==
LOC: ER 15:32
DX: S30.0XXA Contusion of lower back and pelvis, initial encounter (principal); S20.222A Contusion of left back wall of thorax, initial encounter; I10 Essential (primary) hypertension; Z95.0 Presence of cardiac pacemaker
CPT/HCPCS: 72170; 99283